=== PATIENT | female | born 1995 | race American Indian/Alaskan Native ===

== ENCOUNTER 2022-08-01 12:28 | Inpatient (IN) ==
[2022-08-01] MEDS ORDERED: OXYTOCIN 30 UNITS/500 ML BAG IV PRN ×3 (12:40→20:30)
[2022-08-01] MEDS ORDERED: LIDOCAINE 1% LOCAL 20 ML VIAL INFIL PRN (12:40)
[2022-08-01] MEDS ORDERED: PENICILLIN G POTASSIUM 6 MU in DEXTROSE 5% 250 ML IV STA (12:45)
[2022-08-01] MEDS ORDERED: fentaNYL citrate PF 100 MCG/2 ML VIAL ONE (12:50)
[2022-08-01] MEDS ORDERED: ePHEDrine sulfate 50 MG/ML AMP ONE (12:50)
[2022-08-01] MEDS ORDERED: SODIUM CHLORIDE 0.9% PF INJ 10 ML VIAL ONE (12:50)
[2022-08-01] MEDS ORDERED: LIDOCAINE 2%/EPINEPHRINE 1:200,000 20 ML PF ONE (12:51)
[2022-08-01] MEDS ORDERED: BUPIVACAINE 0.25% PF 30 ML VIAL ONE (12:51)
[2022-08-01] MEDS: LACTATED RINGER'S 1,000 ML IV PRN ×2 (12:52→15:25)
[2022-08-01] MEDS ORDERED: fentaNYL 2MCG/ML ROPIVACAINE 1.25MG/ML 100 ML BAG EPI ONE (12:52)
[2022-08-01] MEDS ORDERED: SODIUM CHLORIDE 0.9% PF INJ 10 ML VIAL EPI STA (13:05)
[2022-08-01] MEDS ORDERED: LIDOCAINE 2%/EPINEPHRINE 1:200,000 20 ML PF EPI STA (13:05)
[2022-08-01] MEDS ORDERED: NALOXONE HCL 1 MG in SODIUM CHLORIDE 0.9% 1000ML 1,000 ML IV PRN (13:05)
[2022-08-01] MEDS ORDERED: ONDANSETRON INJ 2 MG/ML 2 ML VIAL IV PRN (13:05)
[2022-08-01] MEDS ORDERED: ROPIVACAINE 0.5% PF 5 MG/ML 20 ML VIAL EPI PRN (13:05)
[2022-08-01] MEDS ORDERED: fentaNYL citrate PF 100 MCG/2 ML VIAL EPI STA (13:05)
[2022-08-01] MEDS ORDERED: fentaNYL citrate PF 100 MCG/2 ML VIAL EPI PRN (13:05)
[2022-08-01] MEDS ORDERED: SODIUM CHLORIDE 0.9% PF INJ 10 ML VIAL EPI PRN (13:05)
[2022-08-01] MEDS ORDERED: diphenhydrAMINE 50 MG/ML VIAL IV PRN (13:05)
[2022-08-01] MEDS ORDERED: fentaNYL 2MCG/ML ROPIVACAINE 1.25MG/ML 100 ML BAG EPI PRN (13:05)
[2022-08-01] MEDS ORDERED: NALBUPHINE HCL INJ 10 MG/ML AMP IV PRN (13:05)
[2022-08-01] MEDS ORDERED: ePHEDrine sulfate 50 MG/ML AMP IV PRN (13:05)
[2022-08-01] MEDS ORDERED: NALOXONE HCL 0.4 MG/1 ML VIAL/CARP IV PRN (13:05)
[2022-08-01] MEDS ORDERED: BUPIVACAINE 0.25% PF 30 ML VIAL EPI PRN (13:05)
[2022-08-01] MEDS ORDERED: BUPIVACAINE 0.25% PF 30 ML VIAL EPI STA (13:05)
[2022-08-01] MEDS ORDERED: LIDOCAINE 2% MPF LOCAL 5 ML VIAL EPI PRN (13:05)
[2022-08-01 13:12] LABS: Hemoglobin 13.6 g/dl (12.0-16.0); Mean Corpuscular Hemoglobin 33.1 pg (25.0-34.0); Mean Corpuscular Hgb Conc 34.9 g/dL (32.0-36.0); Mean Corpuscular Volume 94.9 fL (80.0-100.0); Mean Platelet Volume 9.7 fL (9.4-12.4); Platelet Count 203 K/uL (130-400); RDW Coefficient of Variation 12.5 % (11.5-14.5); Red Blood Count 4.11 M/uL (4.20-5.40); White Blood Count 14.26 K/ul (4.8-10.8)
--- NOTE | 2022-08-01 13:16 | Anesthesiology Consultation ---
Date of Service August 01, 2022 Assessment & Plan Chart Review Chart Review: Acceptable Risk for Labor Epidural Consults Requested none ASA ASA2 Proposed Anesthesia Anesthesia Type: Labor Epidural Risk / Benefits Reviewed With: PT / POA / Parent / Guardian, Accepts Plan and Informed Consent Obtained History Height/Weight Height: 5 ft 6 in Weight: 90.718 kg Allergies Allergy/AdvReac Type Severity Reaction Status Date / Time No Known Allergies Allergy Verified 07/25/22 09:49 Medications Home Medications Medication Instructions Recorded Confirmed Last Taken vitamin no.180-ferrous 1 tab PO DAILY #90 tabs 06/08/22 07/25/22 Unknown fumarate 27 mg-folic acid 1 mg tablet ( Plus Vitamin-Mineral) Active Medications Generic Name Dose Route Start Last Admin Trade Name Freq PRN Reason Stop Dose Admin Lactated Ringer's 1,000 mls @ 125 mls/hr 08/01/22 12:40 08/01/22 12:52 Lr IV 08/03/22 12:39 999 mls/hr .Q8H PRN Administration L&D Protocol Protocol Penicillin G Potassium 6 mu/ 262 mls @ 262 mls/hr 08/01/22 12:45 08/01/22 13:03 Dextrose IV 08/01/22 13:44 262 mls/hr NOW STA Administration Exercise / Class Metabolic Activity II 4-5 Yardwork/Stairs/Walk up hill Past Family History Family History (Updated 05/05/22 @ 13:41 by Nithya Saeed) Other Diabetes Past Surgical History Surgical History (Updated 08/01/22 @ 12:42 by Kristin Hernandez RN) H/O anterior cruciate ligament surgery [place] teeth extracted Past Anesthesia History No Hx of Anesthesia Complications and No Family Hx of Anesthesia Complications History of PONV No Hx of PONV and No Hx of Motion Sickness Social History Smoking Status: Never smoker Do You Dip or Chew Tobacco: No Hx Alcohol Use: No Hx Substance Use: No substance use type: does not use Physical Exam Vital Signs Last Vital Signs Temp 99.0 F 08/01/22 12:41 Pulse 69 08/01/22 12:46 Resp 24 08/01/22 12:41 BP 123/74 08/01/22 12:46 ENMT Mouth: no dentition abnormality Thyromental Distance: > or= 3.5 Finger Breadths Mallampati Class: II Neck normal visual inspection Respiratory normal respiratory effort Auscultation: lungs clear to auscultation bilaterally Cardiovascular Rate/Rhythm: regular rate and regular rhythm Testing Laboratory Results 08/01/22 12:52
--- NOTE | 2022-08-01 13:18 | History & Physical Report ---
Date of Service August 01, 2022 Assessment & Plan (1) Normal labor: Plan Pt has been admitted. PCN going for gbs pos. Anesth arriving now to place epidural. Plan arom closer to 2nd bag of pcn if no srom. Aware of possible need for pitocin if labor pattern decreases due to epidural. fhts categ 1. Admission and Anticipated Discharge Date Admission Date: August 01, 2022 History of Present Illness Chief Complaint: contractions Primary Care Provider: NO PCP 27yo at term with cc of contractions. The ctx became closer and stronger. Advised to come to L&D and was checked by nursing and was 6cm with bulging membranes. GBS positive and so pcn ordered and started. Feels pain with ctx and requests epidural. PNC c/b 1. GBS pos, planned pcn PNL rh pos, ri, gbs pos OBH: g1 GYNH: nl paps no stds Allergies Allergy/AdvReac Type Severity Reaction Status Date / Time No Known Allergies Allergy Verified 07/25/22 09:49 Home Medications Medication Instructions Recorded Confirmed Type vitamin no.180-ferrous 1 tab PO DAILY #90 tabs 06/08/22 08/01/22 Rx fumarate 27 mg-folic acid 1 mg tablet ( Plus Vitamin-Mineral) Patient History Surgical History (Updated 08/01/22 @ 12:42 by Kristin Hernandez RN) H/O anterior cruciate ligament surgery [place] teeth extracted Family History (Updated 05/05/22 @ 13:41 by Nithya Saeed) Other Diabetes Social History (Updated 05/05/22 @ 13:42 by Nithya Saeed) Smoking Status: Never smoker Do You Dip or Chew Tobacco: No; Hx Alcohol Use: No Hx Substance Use: No Beliefs That Will Affect Care: None marital status: marital status details: Nnamdi (50) [phone] Current Living Situation: Spouse Current Living Situation Comment: lives with spouse current occupational status: employed current occupation: active duty Other Information That Helps Us Care for You: No Feels Safe at Home: Yes Safety Concerns: Feels Safe At This Time Assistive Devices: None Review of Systems as per Subjective / HPI Physical Exam Constitutional: WD/WN, vitals as above Respiratory: normal respiratory effort, lungs clear to auscultation Cardiovascular: Rate/Rhythm: regular rate and regular rhythm Gastrointestinal (Abdomen): soft gravid nt efw 7-8# Musculoskeletal: no edema nontender calves Neurologic: grossly normal Psychiatric: A+Ox3, euthymic affect Genitourinary: Manual OB Exam: + cervical dilation (6cm per nurse) OB Exam Monitor Tracing: + external FHT monitor used, + external uterine monitor used (q2-4), + category I and + normal FHT variability Results & Data Vital Signs (Past 12 Hours) Vital Signs Temp Pulse Resp BP Pulse Ox 08/01/22 13:15 68 97 08/01/22 12:46 69 123/74 08/01/22 12:41 99.0 F 24 Coding Level of Care Code None Diagnoses Normal labor O80; Z37.9
[2022-08-01] MEDS ORDERED: PENICILLIN G POTASSIUM 3 MU in DEXTROSE 5% 100 ML IV PRN (16:45)
--- NOTE | 2022-08-01 17:09 | Labor Progress Brief Note ---
Date of Service August 01, 2022 Subjective pt resting. comfortable although noting some low back and low pelvis pressure with ctx. Assessment & Plan (1) Normal labor: (2) Group beta Strep positive: Plan will see how arom helps labor and c/w pit. fhts categ 1. Admission and Anticipated Discharge Date Admission Date: August 01, 2022 Physical Exam Constitutional: WD/WN, vitals as above Genitourinary: Manual OB Exam: + cervical dilation 6 cm, + cervical effacement 80%, + station -1 and + amniotic fluid (arom) clear OB Exam Monitor Tracing: + external FHT monitor used, + external uterine monitor used (q2-4 pit recently started. ), + category I and + normal FHT variability Results & Data Vital Signs (Past 12 Hours) Vital Signs Temp Pulse Resp BP Pulse Ox 08/01/22 17:05 63 95 08/01/22 17:00 69 96 08/01/22 16:58 68 126/73 08/01/22 16:54 20 08/01/22 16:54 98.4 F 20 08/01/22 16:55 67 97 08/01/22 16:50 67 96 08/01/22 16:45 72 97 08/01/22 16:44 70 122/69 08/01/22 16:40 69 96 08/01/22 16:35 66 96 08/01/22 16:30 67 96 08/01/22 16:29 73 130/71 08/01/22 16:25 78 96 08/01/22 15:59 20 08/01/22 15:59 20 08/01/22 16:20 72 96 08/01/22 15:01 18 08/01/22 15:01 18 08/01/22 16:15 79 96 08/01/22 16:14 77 130/72 08/01/22 16:10 67 96 08/01/22 16:05 70 96 08/01/22 16:00 95 08/01/22 16:00 75 08/01/22 16:00 68 107/60 08/01/22 15:55 73 95 08/01/22 15:50 85 95 08/01/22 15:45 75 109/62 96 08/01/22 15:40 68 96 08/01/22 15:35 74 96 08/01/22 15:30 69 95 08/01/22 15:28 72 106/64 08/01/22 15:25 81 94 08/01/22 15:20 69 96 08/01/22 15:15 79 96 08/01/22 15:14 64 115/69 08/01/22 15:13 70 94 08/01/22 15:10 72 96 08/01/22 15:05 73 96 08/01/22 15:00 74 96 08/01/22 14:58 72 108/58 L 08/01/22 14:55 77 95 08/01/22 14:50 65 95 08/01/22 14:46 64 94 08/01/22 14:45 72 95 08/01/22 14:43 65 110/60 08/01/22 14:40 70 96 08/01/22 14:39 64 94 08/01/22 14:35 65 95 08/01/22 14:30 64 95 08/01/22 14:28 70 106/58 L 08/01/22 14:25 74 96 08/01/22 14:24 65 94 08/01/22 14:20 64 95 08/01/22 14:16 73 94 08/01/22 14:15 71 96 08/01/22 14:13 69 107/58 L 08/01/22 14:10 68 95 08/01/22 14:05 65 94 08/01/22 14:00 65 20 97 08/01/22 13:59 62 106/59 L 08/01/22 13:58 72 93 08/01/22 13:55 68 96 08/01/22 13:50 65 95 08/01/22 13:51 68 94 08/01/22 13:45 95 08/01/22 13:45 71 08/01/22 13:45 72 94 08/01/22 13:44 73 106/56 L 08/01/22 13:40 71 97 08/01/22 13:38 70 107/55 L 08/01/22 13:36 75 108/55 L 08/01/22 13:35 81 96 08/01/22 13:34 80 109/55 L 08/01/22 13:32 68 112/55 L 08/01/22 13:30 77 97 08/01/22 13:25 84 97 08/01/22 13:20 76 98 08/01/22 13:15 68 97 08/01/22 12:46 69 123/74 08/01/22 12:41 99.0 F 24 Coding Level of Care Code None Diagnoses Normal labor O80; Z37.9 Group beta Strep positive B95.1
[2022-08-01] MEDS ORDERED: miSOPROStoL 200 MCG TAB ONE (20:01)
[2022-08-01] MEDS ORDERED: METHYLERGONOVINE MALEATE 0.2 MG/ML AMP ONE (20:05)
--- NOTE | 2022-08-01 20:28 | Delivery Summary ---
Vaginal Delivery Summary Date of Service August 01, 2022 Vaginal Delivery Summary The patient dilated to complete and pushed to deliver a viable female Apgars 8 and 9 via over intact perineum. Mouth and nose bulb suctioned at perineum. Loose nuchal x 1 noted and delivered through. Shoulders and body delivered with ease. was vigorous and crying at . Cord clamped at 30 seconds of life and to maternal abdomen where the cord was then doubly clamped and cut. Placenta delivered spontaneously and intact, three-vessel cord. Hemostasis not achieved with dilute pitocin and uterine massage, drainage of the bladder for approximately 400 cc under sterile conditions and bimanual massage. Therefore 800mcg rectal cytotec given. Continued spurting of blood from cervical vessel but inspection of upper vagina and cx revealed no laceration. Considered to be raw surface area vessel and IM methergine 0.2mg placed into cervix/DENYS. Despite this, uterus remained atonic and operaters hand had swept cavity several times for no retained products and given lack of tone despite aforementioned items, bakri balloon placed. 500cc instilled. Bleeding slowed. Cervix and sulci intact as mentioned. EBL 700 cc. Ward placed by nursing under sterile conditions. Events of this pph reviewed with couple. Deny questions. Aware of use of abx in setting of uterine exploration x multiple and use of balloon. Will hold off on po, but if next 2hr bleeding stable consider r egular diet and will plan hgb in next 1hr and then again in am, and prn. Repaire of vaginal laceration and left labial laceration also took placed in routine fashion with 3-0 vicryl. Mother and baby stable in recovery. [facility] Vaginal Delivery Charge Delivery Type Details:
[2022-08-01] MEDS ORDERED: METHYLERGONOVINE MALEATE 0.2 MG/ML AMP IM ONE (20:30)
[2022-08-01] MEDS ORDERED: bisacodyL 10 MG SUPP PR PRN (20:30)
[2022-08-01] MEDS ORDERED: miSOPROStoL 200 MCG TAB PR ONE (20:30)
[2022-08-01] MEDS ORDERED: DIPHTHERIA/TETANUS/PERTUSSIS Vaccine (Tdap, Age 7+yrs) 0.5mL SYR/VL IM ONE (20:30)
[2022-08-01] MEDS ORDERED: HYDROCORTISONE ACETATE 25 MG SUPP PR PRN (20:30)
[2022-08-01] MEDS ORDERED: BENZOCAINE 20% AER SPR 82.5 GM CAN EXT PRN (20:30)
[2022-08-01] MEDS ORDERED: oxyCODONE/ACETAMINOPHEN 5mg/325mg TAB PO PRN (20:30)
[2022-08-01] MEDS: OXYTOCIN 20 UNITS in LACTATED RINGER'S 1,000 ML IV SCH (20:44)
[2022-08-01 21:23] LABS: Hematocrit (blood only) 38.3 % (37.0-47.0); Hemoglobin 13.2 g/dl (12.0-16.0)
[2022-08-01] MEDS: ceFAZolin 2000MG 2,000 MG/15 ML SYR IV SCH (21:35)
[2022-08-01] MEDS: DOCUSATE SODIUM 100 MG CAP PO SCH (21:45)
[2022-08-01] MEDS: IBUPROFEN 600 MG TAB PO PRN (22:02)
[2022-08-02] MEDS: IBUPROFEN 600 MG TAB PO PRN ×4 (01:41→20:08)
[2022-08-02] MEDS: ACETAMINOPHEN 325 MG TAB PO PRN ×2 (01:42→06:32)
[2022-08-02] MEDS: OXYTOCIN 20 UNITS in LACTATED RINGER'S 1,000 ML IV SCH (04:49)
[2022-08-02] MEDS: ceFAZolin 2000MG 2,000 MG/15 ML SYR IV SCH ×2 (05:55→14:20)
--- NOTE | 2022-08-02 06:33 | Obstetrical Progress Note ---
Date of Service <Gregory Patel DO - Last Filed: 08/02/22 07:39> August 02, 2022 Assessment & Plan <Gregory Patel DO - Last Filed: 08/02/22 07:39> (1) Vaginal delivery: - Feels well today. Dockery in place with bakri balloon. Eatting well. - Pain well controlled with ibuprofen 600mg Q4H PRN - Routine care -- OOB, ambulation, diet progression as tolerated - After discharge will have 6 week follow-up with Dr. Jenkins. - 100 CC was taken out this morning of the bakri balloon, will continue to remove 100 cc/hr and monitor for bleeding. Day #:: 1 <Sherin Jenkins MD, FACOG - Last Filed: 08/02/22 07:51> (1) Vaginal delivery: Subjective <Gregory Patel DO - Last Filed: 08/02/22 07:39> Ambulation: limited ambulation Voiding: dockery catheter in place (bakri balloon ) Passing Gas:: No Diet Tolerance:: regular diet Lochia:: Small Feeding Type:: breast feeding Current Pain Level(1-10): 2 Review of Systems Denies fever, chills, sweats Denies shortness of breath, difficulty breathing, chest pain, palpitations, chest pressure. Denies breast pain. Denies dysuria. Denies headache or changes in vision. Physical Exam <Gregory Patel DO - Last Filed: 08/02/22 07:39> General: Alert, oriented. No acute distress. Cardiac: Regular rate and rhythm, no murmurs/rubs/gallops. Respiratory: Clear to auscultation bilaterally a/p, no wheezes/rales/rhonchi. No increased work of breathing. Symmetrical chest rise. No respiratory distress. Abdomen: Soft, nontender, nondistended. Bowel sounds present. Uterus: Uterine fundus firm, palpable 1 cm below umbilicus. Lower Extremities: No lower extremity edema or swelling. No deep calf pain. Arti's negative bilaterally. Results & Data <Gregory Patel DO - Last Filed: 08/02/22 07:39> Vital Signs (Past 12 Hours) Vital Signs Temp Pulse Resp BP Pulse Ox 08/02/22 02:30 37.1 C 18 08/01/22 22:30 36.9 C 18 08/01/22 21:00 37.1 C 18 08/01/22 19:09 37.0 C 20 08/02/22 02:36 69 114/61 08/01/22 22:23 72 104/54 L 08/01/22 22:08 72 106/58 L 08/01/22 21:53 76 113/64 08/01/22 21:38 90 127/67 08/01/22 21:23 86 124/62 08/01/22 21:07 82 127/61 08/01/22 20:53 83 132/65 08/01/22 20:40 106 H 145/89 H 08/01/22 20:30 95 H 99 08/01/22 20:25 101 H 99 08/01/22 20:23 82 120/67 08/01/22 20:20 103 H 97 08/01/22 20:15 93 H 96 08/01/22 20:13 91 H 122/70 08/01/22 20:10 74 97 08/01/22 20:05 76 97 08/01/22 20:02 76 119/63 08/01/22 20:00 80 94 08/01/22 19:58 69 115/64 08/01/22 19:55 77 94 08/01/22 19:50 90 96 08/01/22 19:45 86 97 08/01/22 19:44 78 117/68 08/01/22 19:40 87 95 08/01/22 19:35 88 92 08/01/22 19:30 75 97 08/01/22 19:28 200 H 146/72 H 08/01/22 19:25 76 97 08/01/22 19:20 76 97 08/01/22 19:15 71 97 08/01/22 19:14 68 127/72 08/01/22 19:10 77 96 08/01/22 19:05 65 98 08/01/22 19:00 63 96 08/01/22 18:58 61 110/58 L 08/01/22 18:55 64 96 08/01/22 18:50 65 97 08/01/22 18:45 71 97 08/01/22 18:44 64 114/57 L 08/01/22 18:40 66 95 08/01/22 18:35 60 94 <Sherin Jenkins MD, FACOG - Last Filed: 08/02/22 07:51> Co-Signing Physician Notes Resident Physician Supervision Note: I was present with Dr. Patel during the history and exam. I discussed the case with the resident and agree with the findings and plan as documented in the note. Any exceptions or clarifications are listed here: pt doing well, not much sleep overnight due to feeding baby, nursing well. denies any dizziness, no bleeding issues. no pain issues. did eat last pm. dockery in place. bakri balloon in place, only about 10cc in tubing in last 4hr and no signficant bleeding on pads. abd soft ff 2 down nt. ext nt calves. 100cc removed of fluid from balloon. ppd#1 pph, hgb pending (i had erroneously put in for wrong day), but given vs and last hgb and lack of bleeding opted to start to back out. will cont to deflate bakri 100cc/hr and once out remove dockery. cont with 3 doses total of ancef due to uterine exploration. routine care thereafter. pt aware. rh pos, ri, . Documented By: Sherin Jenkins MD, FACOG Resident Activity Tracking <Gregory Patel DO - Last Filed: 08/02/22 07:39> Resident Involvement: Resident Care Provided Care Provided: OB Delivery
[2022-08-02] MEDS ORDERED: PRENATAL VITAMIN 1 TAB PO SCH (08:00)
[2022-08-02 08:54] LABS: Hematocrit (blood only) 31.2 % (37.0-47.0); Hemoglobin 10.9 g/dl (12.0-16.0)
--- NOTE | 2022-08-02 11:22 | Anesthesia Procedure Note ---
Date of Service August 02, 2022 Anesthesia Post Epidural Note Vital Signs Vital Signs: Temp Pulse Resp BP Pulse Ox 98.8 F 69 19 103/67 99 08/02/22 07:18 08/02/22 07:01 08/02/22 07:18 08/02/22 07:01 08/01/22 20:30 Pain Intensity Lower Abdomen: Pain Intensity: 2 Notes Mental Status: alert / awake / arousable and participated in evaluation Nausea / Vomiting: adequately controlled Pain: adequately controlled Airway Patency, RR, SpO2: stable & adequate BP & HR: stable & adequate Hydration State: stable & adequate Neuraxial Anesthesia: was administered and sensory block is resolving Anesthetic Complications: no major complications apparent and Pt Satisfied with anesthetic care Epidural: Removed without complications and With tip intact
[2022-08-02] MEDS: DOCUSATE SODIUM 100 MG CAP PO SCH (20:08)
--- NOTE | 2022-08-03 07:53 | Obstetrical Progress Note ---
Date of Service <Gregory Patel DO - Last Filed: 08/03/22 08:09> August 03, 2022 Assessment & Plan <Gregory Patel DO - Last Filed: 08/03/22 08:09> (1) Vaginal delivery: - Feels well today. Eating well, voiding well, ambulating well. - Pain well controlled without the need for pain meds at this time. - Routine care -- OOB, ambulation, diet progression as tolerated - After discharge will have 6 week follow-up with Dr. Jenkins. - Will D/C today. Day #:: 2 <Marbin Denise MD, FACOG - Last Filed: 08/04/22 07:52> (1) Vaginal delivery: Subjective <Gregory Patel DO - Last Filed: 08/03/22 08:09> Ambulation: ambulating normally Voiding: no voiding problems Passing Gas:: Yes Diet Tolerance:: regular diet Lochia:: Small Feeding Type:: breast feeding Current Pain Level(1-10): 2 Review of Systems Denies fever, chills, sweats Denies shortness of breath, difficulty breathing, chest pain, palpitations, chest pressure. Denies breast pain. Denies dysuria. Denies headache or changes in vision. Physical Exam <Gregory Patel DO - Last Filed: 08/03/22 08:09> General: Alert, oriented. No acute distress. Cardiac: Regular rate and rhythm, no murmurs/rubs/gallops. Respiratory: Clear to auscultation bilaterally a/p, no wheezes/rales/rhonchi. No increased work of breathing. Symmetrical chest rise. No respiratory distress. Abdomen: Soft, nontender, nondistended. Bowel sounds present. Uterus: Uterine fundus firm, palpable 2 cm below umbilicus. Lower Extremities: No lower extremity edema or swelling. No deep calf pain. Arti's negative bilaterally. Results & Data <Gregory Patel DO - Last Filed: 08/03/22 08:09> Vital Signs (Past 12 Hours) Vital Signs Temp Pulse Resp BP Pulse Ox O2 Del Method 08/02/22 23:05 36.7 C 65 18 106/62 98 Room Air 08/02/22 20:00 36.9 C 69 18 111/65 97 Room Air <Marbin Denise MD, FACOG - Last Filed: 08/04/22 07:52> Co-Signing Physician Notes Resident Physician Supervision Note: I was present with Dr. Patel during the history and exam. I discussed the case with the resident and agree with the findings and plan as documented in the note. Any exceptions or clarifications are listed here: [None] Documented By: Marbin Denise MD, FACOG Resident Activity Tracking <Gregory Patel DO - Last Filed: 08/03/22 08:09> Resident Involvement: Resident Care Provided Care Provided: OB Delivery
[2022-08-03] MEDS: DOCUSATE SODIUM 100 MG CAP PO SCH (08:04)
[2022-08-03] MEDS: IBUPROFEN 600 MG TAB PO PRN (08:04)
== END 2022-08-03 09:58 | disposition home or self-care (01) | DRG 807 ==
LOC: OPB 12:28 → 4S1 12:33 → 4E2 08-02 13:46